=== PATIENT | male | born 1940 | race Caucasian/White ===

== ENCOUNTER → 2016-10-13 | Outpatient (CLI) | payer MEDICARE, BC ==
[2015-07-21 11:25] VITALS: BP 128/78
[~2016-10-13] MED LIST: ASCO500T3 PO; ASPI81TA50 PO; ATORVASTATIN CA80 MG PO; LORA5SOL49 PO; MAGN250T5 PO; OMEG300C PO; SILD100T PO
--- NOTE | 2016-10-13 08:41 | RAD ---
Indication chronic renal disease. Grayscale imaging targeted to the kidneys was performed. Note is made of a previous examination 08/29/2012. The right kidney measures 12.2 x 6.8 x 6.7 cm. No hydronephrosis or solid mass is seen. 2 cystic masses are seen the largest measuring 3.4 cm. The left kidney measures 12.6 x 6.2 x 6.5 cm. There are several cysts associated with the left kidney the largest approaching 2 cm. No hydronephrosis or solid mass is seen. Urinary bladder appeared grossly normal. IMPRESSION: Bilateral renal cysts
== END | disposition home or self-care (01) ==
LOC: US 07:37
PROVIDERS: ATTEND Internal Medicine Nephrology
DX: N28.1 Cyst of kidney, acquired (principal); N18.3 Chronic kidney disease, stage 3 (moderate)
CPT/HCPCS: 76770

== ENCOUNTER → 2016-12-01 | Outpatient (CLI) | payer MEDICARE, BC ==
[2015-07-21 11:25] VITALS: BP 128/78
[~2016-12-01] MED LIST changes: +MAGN250T10 PO; -MAGN250T5 PO
--- NOTE | 2016-12-02 10:33 | CARD ---
APPROVED REPORT EXAM: Two-dimensional and M-mode echocardiogram with Doppler and color Doppler. Other Information Quality : GoodHR: 89bpm Rhythm : Atrial Fibrillation INDICATION Cardiomyopathy Ischemic cardiomyopathy RISK FACTORS Hypertension Hyperlipidemia Smoking 2D DIMENSIONS RVDd3.6 (2.9-3.5cm)Left Atrium(2D)4.7 (1.6-4.0cm) IVSd1.2 (0.7-1.1cm)Aortic Root(2D)2.9 (2.0-3.7cm) LVDd5.2 (3.9-5.9cm)LVOT Diameter2.2 (1.8-2.4cm) PWd1.3 (0.7-1.1cm)LVDs4.7 (2.5-4.0cm) FS (%) 8.2 %SV23.1 ml LVEF(%)18.1 (>50%) Aortic Valve AoV Peak Shaq.135.0cm/sAoV VTI27.2cm AO Peak GR.7.3mmHgLVOT Peak Shaq.75.5cm/s LVOT VTI 14.38cmAO Mean GR.4mmHg PHU (VMAX)2.95el0SRF (VTI)1.93cm2 Mitral Valve MV E Peak Gr.8mmHgMV E Mean Gr.3mmHg Pulmonary Valve PV Peak Mgheyhys46.1cm/sPV Peak Grad.2mmHg Tricuspid Valve TR P. Fzqxyjvp137bq/sTR Peak Gr.34mmHg Pulmonary Vein S1 Zcsthwbh19.2cm/s LEFT VENTRICLE The left ventricle is normal size. There is mild concentric left ventricular hypertrophy. Left ventri megan systolic function is moderately impaired. The Ejection Fraction is 35-40%. There is moderate glob al hypokinesis of the left ventricle. Septal motion suggestive of post-operative state. Moderate to s evere inferior wall hypokinesis. Mild anterior wall hypokinesis. Tissue Doppler imaging reveals moder ate left ventricular diastolic dysfunction. No left ventricle thrombus noted on this study. RIGHT VENTRICLE The right ventricle is mildly dilated. There is normal right ventricular wall thickness. The right ve ntricular systolic function is normal. ATRIA The left atrium is mildly dilated. The right atrium size is normal. The interatrial septum is intact with no evidence for an atrial septal defect or patent foramen ovale as noted on 2-D or Doppler imagi ng. AORTIC VALVE The aortic valve is mildly sclerotic. The aortic valve is trileaflet. Doppler and Color Flow revealed mild aortic regurgitation. There is no significant aortic valvular stenosis. MITRAL VALVE Mitral annular calcification is mild to moderate. The mitral valve leaflets are thickened. Restricted posterior leaflet. There is no evidence of mitral valve prolapse. There is no mitral valve stenosis. Doppler and Color Flow revealed mild mitral regurgitation. TRICUSPID VALVE Doppler and Color Flow revealed moderate tricuspid regurgitation. The pulmonary artery systolic press ure is estimated at 37 mmHg. There is mild pulmonary hypertension. PULMONIC VALVE Doppler and Color Flow revealed mild pulmonic valvular regurgitation. There is no pulmonic valvular s tenosis. GREAT VESSELS The aortic root is normal in size. The ascending aorta is normal in size. The IVC is normal in size a nd collapses >50% with inspiration. PERICARDIAL EFFUSION There is no evidence of significant pericardial effusion. Critical Notification Critical Value: No <Conclusion> There is moderate global hypokinesis of the left ventricle. Septal motion suggestive of post-operativ e state. Moderate to severe inferior wall hypokinesis. Mild anterior wall hypokinesis. Left ventricle systolic function is moderately impaired. The Ejection Fraction is 35-40%.
== END | disposition home or self-care (01) ==
LOC: ECHO 09:30
PROVIDERS: ATTEND Internal Medicine Cardiovascular Disease
DX: I08.3 Combined rheumatic disorders of mitral, aortic and tricuspid valves (principal); I25.5 Ischemic cardiomyopathy; I27.2 Other secondary pulmonary hypertension; E78.5 Hyperlipidemia, unspecified; I10 Essential (primary) hypertension
CPT/HCPCS: 93306

== ENCOUNTER 2017-04-28 16:17 | Emergency (ER) | payer MEDICARE, BC ==
[~2017-04-28] VITALS: Ht 175.3 cm; Wt 100.7 kg
--- NOTE | 2017-04-28 16:27 | PHYS DOC ---
Past History Past Medical History: High Cholesterol, Heart Disease, Hypertension Past Surgical History: Appendectomy, Other Alcohol Use: None Drug Use: None Adult General Chief Complaint Chief Complaint: ICD firing [facility] HPI Patient is a 77 year old male who presents with ICD firing. He had an ICD and recently was complaining of fatigue and they noticed heart rates in the 40s and 50s so cardiology at him stop his 25 mg twice a day of metoprolol. He still on amiodarone. He was engaged in sexual activity today and his ICD fired. He denies any chest pain or shortness of breath during this. He did take a Viagra prior to initiating activity. He was instructed that if his ICD fired to call cardiology who recommended he be evaluated in the emergency department. He has [employer] ICD of which needs to be interrogated. He states his pain prior to his bypass surgery included posterior right shoulder pain. He denied having any of this discomfort today. Review of Systems Review of Systems Constitutional: Denies fever or chills [] Eyes: Denies change in visual acuity, redness, or eye pain [] HENT: Denies nasal congestion or sore throat [] Respiratory: Denies cough or shortness of breath [] Cardiovascular: No additional information not addressed in HPI [] GI: Denies abdominal pain, nausea, vomiting, bloody stools or diarrhea [] : Denies dysuria or hematuria [] Musculoskeletal: Denies back pain or joint pain [] Integument: Denies rash or skin lesions [] Neurologic: Denies headache, focal weakness or sensory changes [] Endocrine: Denies polyuria or polydipsia [] Allergies Allergies Allergies Coded Allergies Type Severity Reaction Last Updated Verified No Known Drug Allergies 04/15/15 No Physical Exam Physical Exam Constitutional: Well developed, well nourished, no acute distress, non-toxic appearance. [] HENT: Normocephalic, atraumatic, bilateral external ears normal, oropharynx moist, no oral exudates, nose normal. [] Eyes: PERRLA, EOMI, conjunctiva normal, no discharge. [] Neck: Normal range of motion, no tenderness, supple, no stridor. [] Cardiovascular:Heart rate regular rhythm, no murmur [] Lungs & Thorax: Bilateral breath sounds clear to auscultation [] Abdomen: Bowel sounds normal, soft, no tenderness, no masses, no pulsatile masses. [] Skin: Warm, dry, no erythema, no rash. [] Back: No tenderness, no CVA tenderness. [] Extremities: No tenderness, no cyanosis, no clubbing, ROM intact, no edema. [] Neurologic: Alert and oriented X 3, normal motor function, normal sensory function, no focal deficits noted. [] Psychologic: Affect normal, judgement normal, mood normal. [] EKG EKG EKG shows sinus rhythm with a rate of [address] elevations, T-wave inversions noted in leads 3, aVF, artifact noted in normal axis, QTC 519 ms, as interpreted by me. Compared to last EKG, new T-wave inversions noted in leads 3 and aVF and 07/21/2015 prior EKG Radiology/Procedures Radiology/Procedures [address] [address] IMAGING REPORT Signed PATIENT: GEORGE PAULA ACCOUNT: [id number] : 1940 LOCATION: ER AGE: 77 SEX: M EXAM STATUS: PRE ER ORD. PHYSICIAN: CLAUDIO LLAMAS MD REASON: chest pain PROCEDURE: PORTABLE CHEST 1V Portable chest, 04/28/2017: History: Chest pain Comparison is made to a study from 07/21/2015. A right-sided transvenous pacemaker is now in place with a single lead extending into the right ventricle. There has been a previous median sternotomy. The heart size and pulmonary vascularity are normal. There is calcific plaquing and tortuosity of the thoracic aorta. No pulmonary infiltrates are seen. There is no evidence of pleural fluid or pneumothorax. IMPRESSION: No acute cardiopulmonary abnormality is detected. DICTATED AND SIGNED BY: CRISTIANO CARLIN MD DATE: 04/28/17 3461 CC: CLAUDIO LLAMAS MD; MORALES CRESPO ~ [address] [address] IMAGING REPORT Signed PATIENT: GEORGE CAMP ACCOUNT: [id number] : 1940 LOCATION: ECHO AGE: 76 SEX: M EXAM STATUS: REG CLI ORD. PHYSICIAN: LIANA GARCIA MD REASON: ISCHEMIC CARDIOMYOPATHY PROCEDURE: ECHOCARDIOGRAM APPROVED REPORT EXAM: Two-dimensional and M-mode echocardiogram with Doppler and color Doppler. Other Information Quality : Good HR: 89bpm Rhythm : Atrial Fibrillation INDICATION Cardiomyopathy Ischemic cardiomyopathy RISK FACTORS Hypertension Hyperlipidemia Smoking 2D DIMENSIONS RVDd 3.6 (2.9-3.5cm) Left Atrium(2D) 4.7 (1.6-4.0cm) IVSd 1.2 (0.7-1.1cm) Aortic Root(2D) 2.9 (2.0-3.7cm) LVDd 5.2 (3.9-5.9cm) LVOT Diameter 2.2 (1.8-2.4cm) PWd 1.3 (0.7-1.1cm) LVDs 4.7 (2.5-4.0cm) FS (%) 8.2 % SV 23.1 ml LVEF(%) 18.1 (>50%) Aortic Valve AoV Peak Shaq. 135.0cm/s AoV VTI 27.2cm AO Peak GR. 7.3mmHg LVOT Peak Shaq. 75.5cm/s LVOT VTI 14.38cm AO Mean GR. 4mmHg PHU (VMAX) 2.04cm2 PHU (VTI) 1.93cm2 Mitral Valve MV E Peak Gr. 8mmHg MV E Mean Gr. 3mmHg Pulmonary Valve PV Peak Velocity 65.1cm/s PV Peak Grad. 2mmHg Tricuspid Valve TR P. Velocity 291cm/s TR Peak Gr. 34mmHg Pulmonary Vein S1 Velocity 86.2cm/s LEFT VENTRICLE The left ventricle is normal size. There is mild concentric left ventricular hypertrophy. Left ventricle systolic function is moderately impaired. The Ejection Fraction is 35-40%. There is moderate global hypokinesis of the left ventricle. Septal motion suggestive of post-operative state. Moderate to severe inferior wall hypokinesis. Mild anterior wall hypokinesis. Tissue Doppler imaging reveals moderate left ventricular diastolic dysfunction. No left ventricle thrombus noted on this study. RIGHT VENTRICLE The right ventricle is mildly dilated. There is normal right ventricular wall thickness. The right ventricular systolic function is normal. ATRIA The left atrium is mildly dilated. The right atrium size is normal. The interatrial septum is intact with no evidence for an atrial septal defect or patent foramen ovale as noted on 2-D or Doppler imaging. AORTIC VALVE The aortic valve is mildly sclerotic. The aortic valve is trileaflet. Doppler and Color Flow revealed mild aortic regurgitation. There is no significant aortic valvular stenosis. MITRAL VALVE Mitral annular calcification is mild to moderate. The mitral valve leaflets are thickened. Restricted posterior leaflet. There is no evidence of mitral valve prolapse. There is no mitral valve stenosis. Doppler and Color Flow revealed mild mitral regurgitation. TRICUSPID VALVE Doppler and Color Flow revealed moderate tricuspid regurgitation. The pulmonary artery systolic pressure is estimated at 37 mmHg. There is mild pulmonary hypertension. PULMONIC VALVE Doppler and Color Flow revealed mild pulmonic valvular regurgitation. There is no pulmonic valvular stenosis. GREAT VESSELS The aortic root is normal in size. The ascending aorta is normal in size. The IVC is normal in size and collapses >50% with inspiration. PERICARDIAL EFFUSION There is no evidence of significant pericardial effusion. Critical Notification Critical Value: No <Conclusion> There is moderate global hypokinesis of the left ventricle. Septal motion suggestive of post-operative state. Moderate to severe inferior wall hypokinesis. Mild anterior wall hypokinesis. Left ventricle systolic function is moderately impaired. The Ejection Fraction is 35-40%. DICTATED AND SIGNED BY: TALITA MARQUEZ MD DATE: 12/02/16 1032 CC: TALITA MARQUEZ MD; MORALES CRESPO; LIANA GARCIA MD ~ Impressions: ICD firing Coronary artery disease Cardiomyopathy Course & Med Decision Making Course & Med Decision Making Pertinent Labs and Imaging studies reviewed. (See chart for details) She was seen by Dr. Bryan, with cardiology. He recommends if his ICD fired for A. fib he was discharged home with 25 mg Toprol-XL daily if it was a ventricular arrhythmia he needs to be admitted for further evaluation. His ICD was interrogated and he did have A. fib with RVR with rates up to 200 bpm. It appears that he was being paced out of it but then went into a V. tach and V. fib and was shocked. Patient does have T-wave inversions in 3 and aVF which are new/different than his previous EKG. At this point we'll admit to [facility] with cardiology consultation. Patient's being checked out to Dr. Bryant for admission to [facility]. Patient asymptomatic in the ED. Aspirin given. Dr. Wood consulted and to see at [facility]. Dr. Monreal to admit. Brittany Disclaimer Dragon Disclaimer This chart was dictated in whole or in part using Voice Recognition software in a busy, high-work load, and often noisy Emergency Department environment. It may contain unintended and wholly unrecognized errors or omissions. Departure Departure: Impression: Primary Impression: ICD (implantable cardioverter-defibrillator) discharge Disposition: 02 XFER SHT-TRM HOSP Condition: STABLE Referrals: MORALES CRESPO (PCP) CLAUDIO LLAMAS MD Apr 28, 2017 16:26 VIDHI BRYANT DO Apr 29, 2017 03:42
--- NOTE | 2017-04-28 16:42 | RAD ---
Portable chest, 04/28/2017: History: Chest pain Comparison is made to a study from 07/21/2015. A right-sided transvenous pacemaker is now in place with a single lead extending into the right ventricle. There has been a previous median sternotomy. The heart size and pulmonary vascularity are normal. There is calcific plaquing and tortuosity of the thoracic aorta. No pulmonary infiltrates are seen. There is no evidence of pleural fluid or pneumothorax. IMPRESSION: No acute cardiopulmonary abnormality is detected.
[2017-04-28 16:44] LABS: BASO % 1 % (0-3); EOS # 0.1 x10^3/uL (0.0-0.7); EOS % 2 % (0-3); HEMOGLOBIN 16.7 g/dL (13.0-17.5); LYMPH # 0.8 x10^3/uL (1.0-4.8); LYMPH % 14 % (24-48); MEAN CORPUSCULAR HEMOGLOBIN 32 pg (25-35); MEAN CORPUSCULAR HGB CONC 34 g/dL (31-37); MEAN CORPUSCULAR VOLUME 94 fL (79-100); MONO # 0.7 x10^3/uL (0.0-1.1); MONO % 11 % (0-9); NEUT # 4.4 x10^3uL (1.8-7.7); NEUT % 73 % (31-73); PLATELET COUNT 91 x10^3/uL (140-400); RED BLOOD COUNT 5.19 x10^6/uL (4.30-5.70); RED CELL DISTRIBUTION WIDTH 14.5 % (11.5-14.5)
[2017-04-28 17:06] LABS: ALBUMIN 4.1 g/dL (3.4-5.0); CALCIUM 9.3 mg/dL (8.5-10.1); CREATININE 1.5 mg/dL (0.7-1.3); DIRECT BILIRUBIN 0.2 mg/dL (0.0-0.2); GFR 45.5; TOTAL BILIRUBIN 0.8 mg/dL (0.2-1.0); TOTAL PROTEIN 7.6 g/dL (6.4-8.2)
[2017-04-28 17:11] LABS: AMPHETAMINE/METHAMPHETAMINE NEG (NEG); BARBITURATES NEG (NEG); BENZODIAZEPINES NEG (NEG); CANNABINOIDS NEG (NEG); COCAINE NEG (NEG); METHADONE NEG (NEG); OPIATES NEG (NEG); PHENCYCLIDINE NEG (NEG)
[2017-04-28 17:27] LABS: BACTERIA,URINE 0 /HPF (0-FEW); BILIRUBIN,URINE NEG (NEG); CLARITY,URINE CLEAR; COLOR,URINE YELLOW; GLUCOSE,URINE NEG (NEG); NITRITE,URINE NEG (NEG); UROBILINOGEN,URINE 0.2 mg/dL (0.2 mg/dL); WBC,URINE OCC /HPF (0-4)
[2017-04-28 17:28] LABS: SQUAMOUS EPITHELIAL CELL,UR FEW /LPF
--- NOTE | 2017-04-28 17:47 | PDOC ---
PROVIDER NOTE PROVIDER NOTE PROVIDER NOTE Patient briefly seen and case discussed with Dr. Pascal in ER 77-year-old man well-known to our service presenting to the hospital with ICD shock. It appears that he was having intermittent moment with his and had recently taken a Viagra and recent interrogation of his device reveals most likely atrial for ablation with a rapid ventricular response in light of cessation of his metoprolol recently for severe bradycardia. We will have the device interrogated and if it appears to be ICD shock related to atrial for ablation then we will restart his metoprolol at half dose and discharged home. Otherwise if there is any significant laboratory abnormalities or he is proven to have ventricular tachycardia then we will plan on transferring to [facility] for coronary angiography tomorrow. TALITA MARQUEZ MD Apr 28, 2017 17:47
[2017-04-28] MEDS ORDERED: ASPIRIN 81 MG TAB.CHEW PO ONE (18:30)
[2017-04-28 19:20] VITALS: BP 166/74
--- NOTE | 2017-04-28 21:57 | EKG ---
[address] [address] Test Date: 2017-04-28 Test Time: 16:46:42 Pat Name: GEORGE PAULA Department: Room: Gender: M [employer] Blocker: ALANNAH : 1940 Requested By: CLAUDIO LLAMAS Order Number: [id number] Reading MD: Jose Martin Logan MD Measurements Intervals [place] Rate: 93 P: -60 [place]: 136 QRS: 16 QRSD: 92 T: 66 QT: 418 QTc: 523 Interpretive Statements SINUS RHYTHM PROLONGED QT Electronically Signed On 05-01-2017 13:36:28 CDT by Jose Martin Logan MD
--- NOTE | 2017-04-28 22:03 | EKG ---
[address] [address] Test Date: 2017-04-28 Test Time: 16:18:30 Pat Name: GEORGE PAULA Department: Room: Gender: M Outreach Nurse: ALANNAH : 1940 Requested By: VIDHI BRYANT Order Number: [id number] Reading MD: Jose Martin Logan MD Measurements Intervals [place] Rate: 96 P: -80 [place]: 194 QRS: 64 QRSD: 106 T: -17 QT: 410 QTc: 519 Interpretive Statements SINUS RHYTHM SINOATRIAL EXIT BLOCK NON-SPECIFIC ST/T CHANGES Electronically Signed On 05-01-2017 13:35:43 CDT by Jose Martin Logan MD
[2017-04-28 22:18] LABS: BURR CELLS FEW; PLT ESTIMATE DECREASED (ADEQUATE)
== END 2017-04-28 19:45 | disposition short-term general hospital (02) ==
LOC: ER 16:17
DX: T82.897A Other specified complication of cardiac prosthetic devices, implants and grafts, initial encounter (principal); I25.10 Atherosclerotic heart disease of native coronary artery without angina pectoris; I42.9 Cardiomyopathy, unspecified; I48.91 Unspecified atrial fibrillation; E78.00 Pure hypercholesterolemia, unspecified; I11.9 Hypertensive heart disease without heart failure; Z95.0 Presence of cardiac pacemaker
CPT/HCPCS: 36415; 71010; 80048; 80076; 80307; 81001; 82553; 83735; 83880; 84443; 84484; 85025; 85610; 85730; 93005; 99285-25; G0479

== ENCOUNTER → 2019-03-21 | Outpatient (CLI) | payer MEDICARE, BC ==
[~2019-03-21] MED LIST changes: +REGADENOSON 0.4 MG/5 ML DISP.SYRIN. IV ONE
--- NOTE | 2019-03-21 10:17 | CARD ---
MR#: [id number] Date of Study: 03/21/2019 Ordering Physician: LIANA GARCIA, Referring Physician: LIANA GARCIA, Tech: Ramona Lopez APPROVED REPORT EXAM: Two-dimensional and M-mode echocardiogram with Doppler and color Doppler. Other Information Quality : AverageHR: 51bpm Rhythm : Pacemaker INDICATION Congestive Heart Failure Surgery/Intervention Pacemaker: Date: 2016 RISK FACTORS Hypertension Hyperlipidemia 2D DIMENSIONS RVDd2.9 (2.9-3.5cm)Left Atrium(2D)4.2 (1.6-4.0cm) IVSd1.1 (0.7-1.1cm)Aortic Root(2D)3.3 (2.0-3.7cm) LVDd5.7 (3.9-5.9cm)LVOT Diameter2.1 (1.8-2.4cm) PWd1.3 (0.7-1.1cm)LVDs4.1 (2.5-4.0cm) FS (%) 27.8 %SV85.5 ml LVEF(%)53.1 (>50%) Aortic Valve AoV Peak Shaq.161.5cm/sAoV VTI46.2cm AO Peak GR.10.4mmHgLVOT Peak Shaq.91.1cm/s LVOT VTI 23.57cmAO Mean GR.6mmHg PHU (VMAX)1.75bm9AAD (VTI)1.77cm2 Mitral Valve MV E Vtruetjd783.2cm/sMV DECEL [id number] MV A Qzututmh08.0cm/sE/A Ratio2.8 Pulmonary Valve PV Peak Ujsxlttc28.3cm/sPV Peak Grad.4mmHg Tricuspid Valve TR P. Oaohmgqy334os/sRAP LIRJPEEQ2rlWg TR Peak Gr.93idJhXHXH45gmRu Pulmonary Vein S1 Wyclncqx92.1cm/sD2 Bynisudy68.3cm/s LEFT VENTRICLE The left ventricle is normal size. There is mild to moderate concentric left ventricular hypertrophy. The left ventricular systolic function is mildly reduced. The Ejection Fraction is 40-45%. There is mild global hypokinesis with moderate inferior wall hypokinesis. Tissue Doppler imaging reveals moder ate left ventricular diastolic dysfunction. RIGHT VENTRICLE The right ventricle is borderline dilated. There is normal right ventricular wall thickness. The righ t ventricular systolic function is normal. ATRIA The left atrium is mildly dilated. The right atrium is borderline dilated. The interatrial septum is intact with no evidence for an atrial septal defect or patent foramen ovale as noted on 2-D or Dopple r imaging. AORTIC VALVE The aortic valve is mildly to moderately thickened. Doppler and Color Flow revealed trace to mild aor tic regurgitation. There is no significant aortic valvular stenosis. MITRAL VALVE The mitral valve is thickened but opens well. There is no evidence of mitral valve prolapse. There is no mitral valve stenosis. Doppler and Color-flow revealed trace to mild mitral regurgitation. TRICUSPID VALVE The tricuspid valve is normal in structure and function. Doppler and Color Flow revealed mild tricusp id regurgitation with an estimated PAP of 45 mmHg. There is no tricuspid valve prolapse or vegetation . There is no tricuspid valve stenosis. PULMONIC VALVE The pulmonic valve is not well visualized. Doppler and Color Flow revealed mild pulmonic valvular reg urgitation. There is no pulmonic valvular stenosis. GREAT VESSELS The aortic root is normal in size. The IVC is normal in size and collapses >50% with inspiration. PERICARDIAL EFFUSION There is no evidence of significant pericardial effusion. Critical Notification Critical Value: No <Conclusion> The left ventricular systolic function is mildly reduced. The Ejection Fraction is 40-45%. There is mild global hypokinesis with moderate inferior wall hypokinesis. Tissue Doppler imaging reveals moderate left ventricular diastolic dysfunction. Doppler and Color Flow revealed mild tricuspid regurgitation with an estimated PAP of 45 mmHg. Signed by : Jose Martin Logan, Electronically Approved : 03/21/2019 10:17:29
--- NOTE | 2019-03-21 11:44 | RAD ---
MR#: [id number] Date of Study: 03/21/2019 Ordering Physician: LIANA GARCIA Referring Physician: TERESA SEBASTIAN Tech: RT Nagi (R) (N) APPROVED REPORT Test Type: Pharmacological Stress Nurse/Tech: RT Nagi (R) (N) Test Indications: CABG, Stents Cardiac History: Hypertension, CABG Medications: See EHR Resting Heart Rate: 53 bpm Resting Blood Pressure: 192/79mmHg Pretest Chest Pain: No chest pain Pharm. Details Pharmacologic stress testing was performed using 0.4mg per 5ml of regadenoson given intravenously ove r 7-10 seconds. POST EXERCISE Reason for Termination: Infusion complete Max HR: 80 bpm Max Blood Pressure: 180/60mmHg Chest Pain: No. Arrhythmia: No. ST Change: No. INTERPRETATION Stress EKG Conclusion: No evidence of stress induced EKG changes. Imaging Protocol IMAGE PROTOCOL: Rest Tc-99m/stress Tc-99m 1 day Rest: Stress: Viability: Radiopharm.Tc99m HtkgahuigQr88i Sestamibi Eimx69bEj 33mCi Duration 15min. 15min. Img Date 03/21/2019 03/21/2019 Inj-Img Ozhn60jeg. 60min. Rest Admin Site:IV - Left HandAdministrator: RT Nagi (R)(N) Stress Admin Site: IV - Left HandAdministrator: RT Nagi (Héctor)(N) STRESS DATA End Diast. Vol.189.0mlAv. Heart Rate53.0bpm End Syst. Vol.58.0mlCO Index BSA0.0L/min Myocardial Reiu319.0gEject. Yvxiosgk49.0% Stress Rates Pk. Fill Rate1.88EDV/secLVtime Pk. Fill 262.45msec Pk. Empty Rate2.49ESV/secLVtime Pk. Ensum413.81msec 1/3 Pk. Fill1.08EDV/sec Stress Scores Regional WT0.00Summed WT0.00 Regional WM0.00Summed WM4.00 The rest and stress images show normal perfusion, normal contraction and thickening. LV Perf. Quant 17 Seg. SSS0.00 17 Seg. SRS14.00 17 Seg. SDS0.00 Stress Defect Extent (% LAD)0.00Rest Defect Extent (% LAD)0.00Rev. Defect Extent (% LAD)0.00 Stress Defect Extent (% LCX) 0.00Rest Defect Extent (% LCX)27.50Rev. Defect Extent (% LCX)0.00 Stress Defect Extent (% RCA)0.00Rest Defect Extent (% RCA)71.10Rev. Defect Extent (% RCA)0.00 Stress Defect Extent (% ZAYRA)0.00Rest Defect Extent (% ZAYRA)23.50Rev. Defect Extent (% ZAYRA)0.00 Other Information Quality:Average Risk Assessment: Low Risk Conclusion 1. No evidence of stress induced EKG changes 2. Normal perfusion at stress/rest. Normal EF at > 55% 3. Subdiaphragmatic attenuation artifact 4. Low risk study Signed by : Jose Martin Logan, Electronically Approved : 03/21/2019 11:43:45
== END | disposition home or self-care (01) ==
LOC: NM 07:29
PROVIDERS: ATTEND Internal Medicine Cardiovascular Disease
DX: I08.8 Other rheumatic multiple valve diseases (principal); I11.0 Hypertensive heart disease with heart failure; I50.22 Chronic systolic (congestive) heart failure; Z95.1 Presence of aortocoronary bypass graft; Z95.5 Presence of coronary angioplasty implant and graft
CPT/HCPCS: 78452; 93017; 93306; A9500; J2785

== ENCOUNTER → 2020-09-24 | Outpatient (CLI) | payer MEDICARE, BC ==
[~2020-09-24] MED LIST changes: -REGADENOSON 0.4 MG/5 ML DISP.SYRIN. IV ONE
--- NOTE | 2020-09-24 11:24 | CARD ---
MR#: [id number] Date of Study: 09/24/2020 Ordering Physician: LIANA GARCIA, Referring Physician: LIANA GARCIA Tech: Dara Horan RDCS APPROVED REPORT EXAM: Two-dimensional and M-mode echocardiogram with Doppler and color Doppler. Other Information Quality : Fair INDICATION Cardiac Disease: CAD Surgery/Intervention ICD/Pacemaker: Date: 2016 CABG: Date: 1999 2D DIMENSIONS RVDd3.2 (2.9-3.5cm)Left Atrium(2D)4.8 (1.6-4.0cm) IVSd0.7 (0.7-1.1cm)Aortic Root(2D)3.0 (2.0-3.7cm) LVDd5.8 (3.9-5.9cm)LVOT Diameter2.3 (1.8-2.4cm) PWd0.9 (0.7-1.1cm)LVDs4.6 (2.5-4.0cm) FS (%) 21.1 %SV71.6 ml LVEF(%)42.3 (>50%) Aortic Valve AoV Peak Shaq.184.0cm/sAoV VTI46.4cm AO Peak GR.13.5mmHgLVOT Peak Shaq.100.6cm/s LVOT VTI 25.84cmAO Mean GR.7mmHg PHU (VMAX)2.04yq1BIP (VTI)2.41cm2 AI P 1/2 Ybmk105gs Mitral Valve MV E Qmczvwqy699.7cm/sMV E Peak Gr.9mmHg MV DECEL XSXY105ecXQ A Pcibkiww83.5cm/s MV E Mean Gr.2mmHgE/A Ratio2.7 Tricuspid Valve TR P. Abdlvfwt968qv/sRAP KGEHFPDS0mmPh TR Peak Gr.36mjLaZHPL55ynLr Pulmonary Vein S1 Cnyfqhib01.7cm/sD2 Wcrqscpd12.9cm/s LEFT VENTRICLE The left ventricle is normal size. There is normal left ventricular wall thickness. Left ventricle sy stolic function is low normal. EF 50% Septal motion suggestive of prior CABG and conduction defect. O therwise, grossly normal wall motion. Tissue Doppler imaging reveals moderate left ventricular diasto lic dysfunction. RIGHT VENTRICLE The right ventricle is normal size. The right ventricular systolic function is normal. There is a pac emaker lead in the right ventricle. ATRIA The left atrium is mildly dilated. The right atrium is mildly dilated. A pacemaker is seen in the rig ht atrium consistent with history. The interatrial septum is intact with no evidence for an atrial se ptal defect or patent foramen ovale as noted on 2-D or Doppler imaging. AORTIC VALVE The aortic valve is mildly thickened and calcified but opens well. Doppler and Color Flow revealed mi ld aortic regurgitation. There is no significant aortic valvular stenosis. MITRAL VALVE The mitral valve is calcified but opens well. Mitral annular calcification is mild to moderate. There is no evidence of mitral valve prolapse. There is no mitral valve stenosis. Doppler and Color-flow r evealed mild mitral regurgitation. TRICUSPID VALVE The tricuspid valve is normal in structure and function. Doppler and Color Flow revealed mild tricusp id regurgitation. The PA pressure was estimated at 45 mmHg. There is no tricuspid valve stenosis. PULMONIC VALVE The pulmonic valve is not well visualized. Doppler and Color Flow revealed mild pulmonic valvular reg urgitation. There is no pulmonic valvular stenosis. GREAT VESSELS The aortic root is normal in size. The ascending aorta is normal in size. The IVC is normal in size a nd collapses >50% with inspiration. PERICARDIAL EFFUSION There is no evidence of significant pericardial effusion. Critical Notification Critical Value: No <Conclusion> Left ventricle systolic function is low normal. EF 50% Septal motion suggestive of prior CABG and conduction defect. Otherwise, grossly normal wall motion. There is a pacemaker lead in the right ventricle. Doppler and Color Flow revealed mild aortic regurgitation. Doppler and Color Flow revealed mild tricuspid regurgitation. The PA pressure was estimated at 45 mm Hg. Signed by : Jose Martin Logan, Electronically Approved : 09/24/2020 11:23:23
--- NOTE | 2020-09-24 11:28 | RAD ---
MR#: [id number] Date of Study: 09/24/2020 Ordering Physician: LIANA GARCIA, Referring Physician: LIANA GARCIA, Tech: Irais Witt RVT,YOAV APPROVED REPORT Patient Location: OUT-PATIENT Laterality:Bilateral Indications CVA/TIA: Grayscale images of the bilateral carotid vessels demonstrates moderate plaque at the level of the ca rotid bulbs greater on the left than the right. Based on velocity criteria there is a moderate 50 to 69% stenosis involving the right proximal advertising intern al carotid artery. There is also moderate disease noted in the right external carotid artery. Verte bral velocities are antegrade and within normal limits on the right side. Mildly elevated ICA to CCA ratio on the right side at 2.0. On the left side velocities are overall consistent with 0 to less than 50% stenosis with antegrade ve rtebral velocities and normal ICA to CCA ratios. Risk Factors Hypertension: TIA/CVA History Smoking Doppler Spectral Velocity Analysis Right Left pCCA 99/7 cm/spCCA 83/7 cm/s mCCA 64/8 cm/smCCA 102/8 cm/s dCCA 60/10 cm/sdCCA 78/9 cm/s Bulb 68/9 cm/sBulb 121/9 cm/s ECA 148/7 cm/sECA 132/7 cm/s pICA 129/22 cm/spICA 94/11 cm/s Erika 108/14 cm/smICA 87/12 cm/s dICA 98/17 cm/sdICA 107/17 cm/s Vert. 77/9 cm/sVert. 50/8 cm/s ICA/CCA 1.30ICA/CCA 1.29 Critical Notification Critical Value: No <Conclusion> 1. Moderate right sided internal carotid arterial disease (50 to 69%) based on velocity criteria. 2. No significant left-sided disease. Signed by : Jose Martin Logan, Electronically Approved : 09/24/2020 11:28:11
== END ==
LOC: ECHO 08:18
PROVIDERS: ATTEND Internal Medicine Cardiovascular Disease
DX: I08.8 Other rheumatic multiple valve diseases (principal); I65.23 Occlusion and stenosis of bilateral carotid arteries; I10 Essential (primary) hypertension; Z87.891 Personal history of nicotine dependence
CPT/HCPCS: 93306; 93880

== ENCOUNTER → 2021-04-01 | Outpatient (CLI) | payer MEDICARE, BC ==
[~2021-04-01] MED LIST changes: +REGADENOSON 0.4 MG/5 ML DISP.SYRIN. IV ONE
--- NOTE | 2021-04-01 12:37 | RAD ---
MR#: [id number] Date of Study: 04/01/2021 Ordering Physician: LIANA GARCIA, Referring Physician: TERESA SEBASTIAN Tech: RT Nagi (R) (N) APPROVED REPORT Test Type: Pharmacological Stress Nurse/Tech: Regina Healy / Ruiz Test Indications: CAD Cardiac History: Hypertension, Quad bypass, 13 stents Medications: See EHR Medical History: See EHR Resting Heart Rate: 56 bpm Resting Blood Pressure: 196/65mmHg Pharm. Details Pharmacologic stress testing was performed using 0.4mg per 5ml of regadenoson given intravenously ove r 7-10 seconds. POST EXERCISE Reason for Termination: Reached target heart rate Max HR: 64 bpm Max Blood Pressure: 175/53mmHg Blood Pressure response to exercise: Normal blood pressure response during stress. Heart Rate response to exercise: Normal Chest Pain: No. Arrhythmia: No. ST Change: No. INTERPRETATION Stress EKG Conclusion: No evidence of stress induced EKG changes. Imaging Protocol IMAGE PROTOCOL: Rest Tc-99m/stress Tc-99m 1 day Rest: Stress: Viability: Radiopharm.Tc99m WzfhjwekmNe30y Sestamibi Cahf81vLj 33mCi Duration 15min. 15min. Img Date 04/01/2021 04/01/2021 Inj-Img Ties50wqk. 60min. Rest Admin Site:IV - Left AntecubitalAdministrator: RT Nagi (R)(N) Stress Admin Site: IV - Left AntecubitalAdministrator: RT Nagi (R)(N) STRESS DATA End Diast. Vol.184.0mlAv. Heart Rate53.0bpm End Syst. Vol.74.0mlCO Index BSA0.0L/min Myocardial Iaxy524.0gEject. Cjyxfkvz03.0% Stress Rates Pk. Fill Rate2.34EDV/secLVtime Pk. Fill 273.12msec Pk. Empty Rate3.12ESV/secLVtime Pk. Jgmxu890.38msec 06/30 Pk. Fill0.46EDV/sec Stress Scores Regional WT0.00Summed WT0.00 Regional WM0.00Summed WM14.00 LV Perfusion There is a FIXED basal inferior wall infarct suggestive of prior infarct versus fibrosis. Wall Motion Normal wall motion. LV Perf. Quant 17 Seg. SSS6.00 17 Seg. SRS2.00 17 Seg. SDS4.00 Stress Defect Extent (% LAD)0.00Rest Defect Extent (% LAD)0.00Rev. Defect Extent (% LAD)0.00 Stress Defect Extent (% LCX) 10.00Rest Defect Extent (% LCX)8.80Rev. Defect Extent (% LCX)0.00 Stress Defect Extent (% RCA)53.30Rest Defect Extent (% RCA)13.30Rev. Defect Extent (% RCA)23.30 Stress Defect Extent (% ZAYRA)15.20Rest Defect Extent (% ZAYRA)5.20Rev. Defect Extent (% ZAYRA)5.40 Other Information Quality:Fair Risk Assessment: Low Risk Conclusion 1. No evidence of stress induced EKG changes. 2. FIXED basal inferior wall defect suggestive of prior infarct w/o ischemia. 3. Normal EF at > 70% 4. Low risk study Signed by : Jose Martin Logan, Electronically Approved : 04/01/2021 12:37:03
== END ==
LOC: NM 08:30
PROVIDERS: ATTEND Internal Medicine Cardiovascular Disease
DX: I25.10 Atherosclerotic heart disease of native coronary artery without angina pectoris (principal)
CPT/HCPCS: 78452; 93017; A9500; J2785

== ENCOUNTER → 2021-10-28 | Outpatient (CLI) | payer MEDICARE, BC ==
[~2021-10-28] MED LIST changes: -REGADENOSON 0.4 MG/5 ML DISP.SYRIN. IV ONE
--- NOTE | 2021-10-28 11:32 | RAD ---
MR#: [id number] Date of Study: 10/28/2021 Ordering Physician: LIANA GARCIA, Referring Physician: LINAA GARCIA, Tech: Irais Witt RVT,YOAV APPROVED REPORT Patient Location: OUT-PATIENT Laterality:Bilateral Indications Carotid artery stenosis HX of [place] Risk Factors Hypertension: Smoking Grayscale images demonstrate bilateral mild carotid atherosclerotic disease. Based on velocity crite nadia overall 0 to less than 50% stenosis in the bilateral internal carotid arteries. Moderately eleva bhargav velocities in the right external carotid artery and left distal common carotid artery. Normal IC A to CCA ratios bilaterally and antegrade vertebral velocities bilaterally. Doppler Spectral Velocity Analysis Right Left pCCA 97/10 cm/spCCA 106/9 cm/s mCCA 77/9 cm/smCCA 97/12 cm/s dCCA 58/9 cm/sdCCA 134/11 cm/s Bulb 69/10 cm/sBulb 123/10 cm/s ECA 231/9 cm/sECA 118/6 cm/s pICA 121/17 cm/spICA 120/13 cm/s Erika 116/20 cm/smICA 94/22 cm/s dICA 96/18 cm/sdICA 88/14 cm/s Vert. 47/7 cm/sVert. 75/13 cm/s ICA/CCA 1.25ICA/CCA 1.13 Critical Notification Critical Value: No <Conclusion> 1. No significant bilateral internal carotid arterial disease. Signed by : Jose Martin Logan, Electronically Approved : 10/28/2021 11:32:01
--- NOTE | 2021-10-28 17:20 | CARD ---
MR#: [id number] Date of Study: 10/28/2021 Ordering Physician: LIANA GARCIA, Referring Physician: Erik SEBASTIAN: Chang Caceres [facility] APPROVED REPORT EXAM: Two-dimensional and M-mode echocardiogram with Doppler and color Doppler. Other Information Quality : AverageHR: 54bpm Rhythm : Bradycardia INDICATION Cardiac Disease: CAD Carotid Stenosis Surgery/Intervention ICD/Pacemaker: 2D DIMENSIONS Left Atrium(2D)5.4 (1.6-4.0cm)IVSd1.5 (0.7-1.1cm) Aortic Root(2D)3.6 (2.0-3.7cm)LVDd5.2 (3.9-5.9cm) LVOT Diameter2.1 (1.8-2.4cm)PWd0.9 (0.7-1.1cm) LVDs4.5 (2.5-4.0cm)FS (%) 12.5 % SV34.0 mlLVEF(%)26.8 (>50%) Aortic Valve AoV Peak Shaq.171.6cm/sAoV VTI39.9cm AO Peak GR.11.8mmHgLVOT Peak Shaq.79.1cm/s LVOT VTI 19.15cmAO Mean GR.6mmHg PHU (VMAX)1.34sv9STZ (VTI)1.61cm2 AI P 1/2 Cajy739im Mitral Valve MV E Uekgzjco142.1cm/sMV E Peak Gr.8mmHg MV DECEL MNAJ262czQN A Mzoottkd82.7cm/s MV E Mean Gr.3mmHgE/A Ratio2.3 Pulmonary Valve PV Peak Ppbcgpsr243.4cm/sPV Peak Grad.5mmHg Tricuspid Valve TR P. Auxxpyer742mz/sTR Peak Gr.36mmHg Pulmonary Vein S1 Nyepncgd49.1cm/sD2 Kldbjptm71.4cm/s LEFT VENTRICLE The left ventricle is normal size. There is mild to moderate concentric left ventricular hypertrophy. The left ventricular systolic function is mildly reduced. EF 45% Septal motion consistent with post- operative state and prior infarct. Otherwise, mild global hypokinesis. Tissue Doppler imaging reveals moderate left ventricular diastolic dysfunction. No left ventricle thrombus noted on this study. The re is no ventricular septal defect visualized. There is no left ventricular aneurysm. There is no mas s noted in the left ventricle. RIGHT VENTRICLE The right ventricle is normal size. There is normal right ventricular wall thickness. The right ventr icular systolic function is normal. Pacemaker lead noted in the right ventricle. ATRIA The left atrium is moderately dilated. The right atrium size is normal. The interatrial septum is int act with no evidence for an atrial septal defect or patent foramen ovale as noted on 2-D or Doppler i maging. AORTIC VALVE The aortic valve is calcified but opens well. The aortic valve is mildly to moderately thickened. Dop pler and Color Flow revealed trace to mild aortic regurgitation. There is no significant aortic valvu lar stenosis. Calculated aortic valve area is 1.6 cm2 with maximum pressure gradient of 12 mmHg and m pippa pressure gradient of 6 mmHg. There is no aortic valvular vegetation. MITRAL VALVE The mitral valve is thickened but opens well. Mitral annular calcification is moderate. There is no e vidence of mitral valve prolapse. There is no mitral valve stenosis. Doppler and Color-flow revealed mild mitral regurgitation. TRICUSPID VALVE The tricuspid valve leaflets are thickened , but open well. Doppler and Color Flow revealed mild tric uspid regurgitation. RVSP 40 mm Hg. There is no tricuspid valve prolapse or vegetation. There is no t ricuspid valve stenosis. PULMONIC VALVE There is mild pulmonic regurgitation. There is no pulmonic valvular stenosis. GREAT VESSELS The aortic root is normal in size. The ascending aorta is normal in size. The IVC is normal in size a nd collapses >50% with inspiration. PERICARDIAL EFFUSION There is no pleural effusion. There is no evidence of significant pericardial effusion. Critical Notification Critical Value: No <Conclusion> The left ventricular systolic function is mildly reduced. EF 45% Septal motion consistent with post-operative state and prior infarct. Otherwise, mild global hypokine sis. Pacemaker lead noted in the right ventricle. Doppler and Color Flow revealed mild tricuspid regurgitation. RVSP 40 mm Hg. Signed by : Jose Martin Logan, Electronically Approved : 10/28/2021 17:19:24
== END ==
LOC: ECHO 08:39
PROVIDERS: ATTEND Internal Medicine Cardiovascular Disease
DX: I08.8 Other rheumatic multiple valve diseases (principal); I65.23 Occlusion and stenosis of bilateral carotid arteries; I50.22 Chronic systolic (congestive) heart failure
CPT/HCPCS: 93306; 93880